=== PATIENT | male | born 1990 | race Caucasian/White ===

== ENCOUNTER 2022-01-25 20:00 | Emergency (ER) | payer BC ==
[2022-01-25] MEDS ORDERED: Diphtheria,Pertussis(Acell),Tetanus Vaccine 0.5 ML Syringe IM ONE (20:04)
[2022-01-25 20:19] VITALS: BP 150/92; PULSE 91
[2022-01-25] MEDS ORDERED: Lidocaine 1% with EPINEPHrine 1:100,000 10 ML MDV ONE (20:26)
[2022-01-25] MEDS ORDERED: Lidocaine 1% with EPINEPHrine 1:100,000 10 ML MDV INJECT ONE (20:27)
== END 2022-01-25 21:00 | disposition home or self-care (01) ==
LOC: KA.ED 20:00
DX: S01.411A Laceration without foreign body of right cheek and temporomandibular area, initial encounter (principal); Z23 Encounter for immunization; W20.8XXA Other cause of strike by thrown, projected or falling object, initial encounter; Y93.64 Activity, baseball
CPT/HCPCS: 12011; 70486; 90471; 90715; 99283; 99283-25